=== PATIENT | female | born 1940 | race Caucasian/White ===

== ENCOUNTER 2016-07-10 10:26 | Inpatient (IN) | payer MEDICARE, OTHER ==
[~2016-07-10] VITALS: Ht 165.1 cm; Wt 79.0 kg
[~2016-07-10 10:26] MED LIST: CIPRO XR500 MG PO; CRESTOR10 MG PO; CRESTOR5 MG PO; FISH OIL1 CAP PO; HYZAAR1 TA2 PO; HYZAAR1 TAB PO; LIPITOR40 MG PO; METFORMIN1000 MG PO; METFORMIN500 MG PO; METOPROL TAR25 MG PO; METOPROL TAR50 MG PO; METOPROLOL TART50 MG PO; NORCO1 TA1 PO; OMEPRAZOLE20 M1 PO; PLAVIX75 MG PO; PROTONIX40 MG PO; ULTRAM50 M1 PO
[2016-07-10 10:59] LABS: HEMATOCRIT 36.2 % (37.0-47.0); HEMOGLOBIN 11.9 g/dl (12.0-16.0); IMMATURE GRANULOCYTES 0.7 % (0.0-1.0); MEAN CELL VOLUME 93.5 fL CALC (80.0-100.0); MEAN CORPUSCULAR HGB 30.7 pG CALC (26.0-32.0); MEAN CORPUSCULAR HGB CONC 32.9 g/L CALC (32.0-36.0); NEUT# 5.85 thou/uL (2.00-7.15); RED BLOOD COUNT 3.87 mill/uL (4.20-5.60)
[2016-07-10 11:03] LABS: URINE BILIRUBIN - DIPSTICK NEGATIVE (NEGATIVE); URINE BLOOD DIPSTICK LARGE (NEGATIVE); URINE COLOR YELLOW; URINE GLUCOSE - DIPSTICK NEGATIVE (NEGATIVE); URINE KETONE NEGATIVE (NEGATIVE); URINE PH 5.5 (4.5-8.0); URINE PROTEIN - DIPSTICK 30 mg/dL (NEG-TRACE); URINE UROBILINOGEN - DIPSTICK 0.2 E.U./dL (0.2)
[2016-07-10 11:04] LABS: URINE CLARITY CLOUDY; URINE LEUK ESTERASE SMALL (NEGATIVE); URINE NITRITE - DIPSTICK POSITIVE (Negative)
[2016-07-10 11:05] LABS: URINE BACTERIA MANY hpf; URINE EPITHELIAL CELLS MANY EPI/hpf (0-FEW); URINE RBC 25-50 RBC/hpf (0-5); URINE WBC 20-50 WBC/hpf (0-5)
[2016-07-10 11:19] LABS: ALBUMIN 3.6 g/dL (3.2-5.0); ALKALINE PHOSPHATASE 133 u/l (38-126); ANION GAP 17 (6-22 (CALC)); BILIRUBIN, TOTAL 0.3 mg/dL (0.0-1.4); BUN 22 mg/dL (8-23); BUN/CREATININE RATIO 40 (12-20 (CALC)); CALCIUM 9.5 mg/dL (8.4-10.2); CARBON DIOXIDE 26 mmol/l (22-30); CHLORIDE 104 mmol/l (95-108); CREATININE 0.6 mg/dL (0.5-1.0); GFR > 60 ML/MIN (>=60 (CALC)); GFR FOR AFR.AMER. > 60 ML/MIN (>=60 (CALC)); GLUCOSE 159 mg/dL (82-115); POTASSIUM 4.1 mmol/l (3.5-5.1); SGOT/AST 14 u/l (9-36); SGPT/ALT 25 u/l (11-66); SODIUM 143 mmol/l (137-146); TOTAL PROTEIN 6.8 g/dL (6.3-8.2)
[2016-07-10 11:24] LABS: PROTHROMBIN TIME 10.4 SECONDS (9.0-12.5)
[2016-07-10 11:31] LABS: MYOGLOBIN 22 ng/mL (0 - 62)
[2016-07-10 14:41] VITALS: BP 176/60
[2016-07-10 15:39] VITALS: BP 177/66
[2016-07-10 19:04] VITALS: BP 156/54
[2016-07-10 22:59] LABS: URINE BILIRUBIN - DIPSTICK NEGATIVE (NEGATIVE); URINE BLOOD DIPSTICK TRACE-INTACT (NEGATIVE); URINE CLARITY CLOUDY; URINE COLOR YELLOW; URINE GLUCOSE - DIPSTICK NEGATIVE (NEGATIVE); URINE KETONE NEGATIVE (NEGATIVE); URINE PH 5.5 (4.5-8.0); URINE PROTEIN - DIPSTICK TRACE mg/dL (NEG-TRACE); URINE SPECIFIC GRAVITY 1.025; URINE UROBILINOGEN - DIPSTICK 0.2 E.U./dL (0.2)
[2016-07-10 23:01] LABS: URINE LEUK ESTERASE LARGE (NEGATIVE); URINE NITRITE - DIPSTICK POSITIVE (Negative)
[2016-07-10 23:08] LABS: URINE BACTERIA MANY hpf; URINE MUCUS MODERATE hpf (NONE-FEW); URINE SQUAMOUS EPITHELIAL CELL FEW EPI/hpf (0-FEW)
[2016-07-10 23:15] VITALS: BP 148/58
[2016-07-11 03:48] VITALS: BP 151/55
[2016-07-11 05:00] LABS: HEMATOCRIT 32.9 % (37.0-47.0); HEMOGLOBIN 10.9 g/dl (12.0-16.0); IMMATURE GRANULOCYTES 0.4 % (0.0-1.0); MEAN CELL VOLUME 92.9 fL CALC (80.0-100.0); MEAN CORPUSCULAR HGB 30.8 pG CALC (26.0-32.0); MEAN CORPUSCULAR HGB CONC 33.1 g/L CALC (32.0-36.0); NEUT# 5.1 thou/uL (2.00-7.15); RED BLOOD COUNT 3.54 mill/uL (4.20-5.60); RED CELL DISTRI WIDTH 12.9 % (11.5-15.5)
[2016-07-11 05:10] LABS: ANION GAP 13 (6-22 (CALC)); BUN 19 mg/dL (8-23); BUN/CREATININE RATIO 32 (12-20 (CALC)); CARBON DIOXIDE 28 mmol/l (22-30); CHLORIDE 104 mmol/l (95-108); CREATININE 0.6 mg/dL (0.5-1.0); GFR > 60 ML/MIN (>=60 (CALC)); GFR FOR AFR.AMER. > 60 ML/MIN (>=60 (CALC)); GLUCOSE 130 mg/dL (82-115); SODIUM 141 mmol/l (137-146)
[2016-07-11 08:24] VITALS: BP 168/68
[2016-07-11 11:30] VITALS: BP 158/62
[2016-07-11 15:13] LABS: HEMATOCRIT 31.7 % (37.0-47.0); HEMOGLOBIN 10.6 g/dl (12.0-16.0)
[2016-07-11 16:15] VITALS: BP 157/62
[2016-07-12] VITALS: BP 146/65
[2016-07-12 03:46] VITALS: BP 154/66
[2016-07-12 06:45] LABS: HEMATOCRIT 32.3 % (37.0-47.0); HEMOGLOBIN 10.7 g/dl (12.0-16.0); IMMATURE GRANULOCYTES 0.5 % (0.0-1.0); MEAN CELL VOLUME 92.6 fL CALC (80.0-100.0); MEAN CORPUSCULAR HGB 30.7 pG CALC (26.0-32.0); MEAN CORPUSCULAR HGB CONC 33.1 g/L CALC (32.0-36.0); NEUT# 4.28 thou/uL (2.00-7.15); RED BLOOD COUNT 3.49 mill/uL (4.20-5.60)
[2016-07-12 07:07] LABS: ANION GAP 13 (6-22 (CALC)); BUN 13 mg/dL (8-23); BUN/CREATININE RATIO 26 (12-20 (CALC)); CALCIUM 9.2 mg/dL (8.4-10.2); CARBON DIOXIDE 27 mmol/l (22-30); CHLORIDE 104 mmol/l (95-108); CREATININE 0.5 mg/dL (0.5-1.0); GFR > 60 ML/MIN (>=60 (CALC)); GFR FOR AFR.AMER. > 60 ML/MIN (>=60 (CALC)); GLUCOSE 118 mg/dL (82-115); POTASSIUM 3.9 mmol/l (3.5-5.1); SODIUM 141 mmol/l (137-146)
[2016-07-12 07:09] VITALS: BP 164/71
[2016-07-12 11:06] VITALS: BP 152/69
[2016-07-12 15:05] VITALS: BP 157/73
[2016-07-12] MEDS ORDERED: DOXYCYCL HYC100 MG PO (17:23)
== END 2016-07-12 19:40 | DRG 690 ==
LOC: ENPENDDIS → ED 10:26 → ED-I 11:02 → ED 11:02 → ED-I 12:41 → ED 13:48 → MS2 13:49
PROVIDERS: Emergency Medicine; ADMIT Internal Medicine; ATTEND Internal Medicine
PROC: 0T2BX0Z Change Drainage Device in Bladder, External Approach (ICD-10-PCS; principal; 2016-07-10)
DX: N39.0 Urinary tract infection, site not specified (principal); L89.301 Pressure ulcer of unspecified buttock, stage 1; I69.954 Hemiplegia and hemiparesis following unspecified cerebrovascular disease affecting left non-dominant side; K92.2 Gastrointestinal hemorrhage, unspecified; L02.31 Cutaneous abscess of buttock; I10 Essential (primary) hypertension; E11.9 Type 2 diabetes mellitus without complications; B96.20 Unspecified Escherichia coli [E. coli] as the cause of diseases classified elsewhere; E78.5 Hyperlipidemia, unspecified; I25.10 Atherosclerotic heart disease of native coronary artery without angina pectoris; I69.998 Other sequelae following unspecified cerebrovascular disease; N39.498 Other specified urinary incontinence; R15.9 Full incontinence of feces; Z95.5 Presence of coronary angioplasty implant and graft; Z79.84 Long term (current) use of oral hypoglycemic drugs; Z87.891 Personal history of nicotine dependence; Z88.0 Allergy status to penicillin; Z88.2 Allergy status to sulfonamides
CPT/HCPCS: J1956